=== PATIENT | female | born 1980 | race Caucasian/White ===

== ENCOUNTER → 2020-06-29 15:36 | Outpatient (CLI) | payer BC, SELFPAY ==
--- NOTE | ~2020-06-29 | MM_ITS ---
EXAMINATION: MM screening [facility] BI w elieser HISTORY: Screening mammogram TECHNIQUE: Craniocaudal and mediolateral oblique 3-D tomosynthesis images were obtained and synthetic 2-D images were generated. CAD analysis was submitted and interpreted. COMPARISON: 11/10/2018, 10/25/2016 BREAST PARENCHYMAL COMPOSITION: The breasts are extremely dense, which lowers the sensitivity of mamm ography. FINDINGS: There is no evidence of suspicious mass, calcification, or architectural distortion to sugg est malignancy in either breast. There has been no suspicious interval change. IMPRESSION: 1. No mammographic evidence of malignancy. 2. Recommend routine screening mammography in one year. BI-RADS Category 1: Negative Reviewed, dictated and finalized at location A. IN [facility]
== END ==
PROVIDERS: PCP Physician Assistant; Visit Provider Physician Assistant
DX: Z12.31 Encounter for screening mammogram for malignant neoplasm of breast (principal)
CPT/HCPCS: 77063; 77067

== ENCOUNTER → 2021-04-19 08:25 | Outpatient (CLI) | payer BC, SELFPAY ==
--- NOTE | ~2021-04-19 | MMUS_ITS ---
EXAMINATION: MM diagnostic [facility] BI w elieser, US breast BI complete HISTORY: Right breast lump TECHNIQUE: ML, MLO and craniocaudal 3-D tomosynthesis images of both breasts were performed and [facility] were [facility]. CAD analysis was submitted and interpreted. High resolution bilateral complete breast ultrasound was performed. COMPARISON: 06/29/2020 bilateral digital screening mammogram 11/10/2018 bilateral diagnostic digital mammogram and limited right breast ultrasound BREAST PARENCHYMAL COMPOSITION: The breasts are extremely dense, which lowers the sensitivity of mamm ography. FINDINGS: MAMMOGRAPHIC FINDINGS: An approximately 8 mm circumscribed mass is noted in the posterior mid to lower outer left breast (ML O Tomosynthesis image 6/35; craniocaudal Tomosynthesis image 10/38). There is extremely dense stroma bilaterally may obscure additional masses. Bilateral complete ultraso und examination was therefore performed. Occasional benign calcifications are noted. ULTRASOUND: No suspicious solid mass lesion or shadowing of either breast is detected. Right breast: 2:00 5 cm from nipple: 3 x 10 mm simple cyst 10:00 4 cm from nipple: There are 2 up to 22 x 16 mm simple cyst. Left breast: 12:00 2 cm from nipple: Adjacent 4 and 4.5 mm simple cysts 1:00 2 cm from nipple: 14 x 8 x 12 mm cyst 3:00 5 cm from nipple: 4.5 x 8.5 mm cyst 3:00 3 cm from nipple: 2.6 x 4.5 mm cyst 5:00 2 cm from nipple: Septated 7.5 x 4.1 x 6.7 mm cyst 10:00 4 cm from nipple: Septated 6.7 x 5.2 x 6.4 mm cyst 11:00 4 cm from nipple: 4.5 x 3.6 x 6.6 mm parallel circumscribed hypoechoic lesion IMPRESSION: 1. Benign findings; no mammographic evidence of malignancy 2. Routine mammographic screening is recommended BI-RADS Category 2: Benign finding(s). Reviewed, dictated and finalized at location A. IMPRESSION: 1. Benign findings; no mammographic evidence of malignancy 2. Routine mammographic screening is recommended BI-RADS Category 2: Benign finding(s).
== END ==
PROVIDERS: PCP Physician Assistant; Visit Provider Nurse Practitioner Obstetrics & Gynecology
DX: N63.13 Unspecified lump in the right breast, lower outer quadrant (principal)
CPT/HCPCS: 76641; 77062; 77066; G0279

== ENCOUNTER → 2022-04-27 15:46 | Outpatient (CLI) | payer BC, SELFPAY ==
--- NOTE | ~2022-04-27 | CT_ITS ---
EXAMINATION: CT facial bones wo con DATE: 04/27/2022 16:17 INDICATION: Left facial pain. TECHNIQUE: Computed tomography (CT) of the facial bones and maxillofacial region was performed withou t intravenous contrast. Automated exposure control and iterative reconstruction technique were employ ed. The dose-length product was 294.29 mGy-cm. COMPARISON: None. FINDINGS: There is mild mucosal thickening in the ethmoid sinuses and right maxillary sinus. Bone ali gnment is normal. No fracture. There is mild cervical spondylosis. IMPRESSION: 1. No etiology for the patient's symptoms. Reviewed, dictated and finalized at location A.
== END ==
PROVIDERS: PCP Physician Assistant; Visit Provider Physician Assistant
DX: G50.1 Atypical facial pain (principal)
CPT/HCPCS: 70486

== ENCOUNTER → 2022-05-15 16:00 | Outpatient (CLI) | payer BC, SELFPAY ==
--- NOTE | ~2022-05-15 | MM_ITS ---
EXAMINATION: MM screening [facility] BI w elieser HISTORY: Screening mammogram TECHNIQUE: Craniocaudal and mediolateral oblique 3-D tomosynthesis images were obtained and synthetic 2-D images were generated. CAD analysis was submitted and interpreted. COMPARISON: 04/19/2021, 06/29/2020, 11/10/2018 BREAST PARENCHYMAL COMPOSITION: The breasts are extremely dense, which lowers the sensitivity of mamm ography. FINDINGS: No suspicious mass, calcification, or architectural distortion are identified in either jose ast to suggest malignancy. There has been no suspicious interval change. IMPRESSION: 1. No mammographic evidence of malignancy. 2. Recommend routine screening mammography in one year. BI-RADS Category 1: Negative Reviewed, dictated and finalized at location A.
== END ==
PROVIDERS: PCP Physician Assistant; Visit Provider Nurse Practitioner Obstetrics & Gynecology
DX: Z12.31 Encounter for screening mammogram for malignant neoplasm of breast (principal)
CPT/HCPCS: 77063; 77067

== ENCOUNTER → 2023-05-20 12:56 | Outpatient (CLI) | payer BC, SELFPAY ==
--- NOTE | ~2023-05-20 | MM_ITS ---
EXAMINATION: MM screening [facility] BI w elieser HISTORY: Screening mammogram TECHNIQUE: Craniocaudal and mediolateral oblique 3-D tomosynthesis images were obtained and synthetic 2-D images were generated. CAD analysis was submitted and interpreted. COMPARISON: 05/2022 bilateral screening mammogram 04/19/2021 diagnostic bilateral mammogram and complete bilateral breast ultrasound examination BREAST PARENCHYMAL COMPOSITION: The breasts are extremely dense, which lowers the sensitivity of mamm ography. FINDINGS there are bilateral breast masses. There is extremely dense stroma which may obscure masses anywhere in either breast. Bilateral diagnostic mammography and complete bilateral breast ultrasound examination are recommended. IMPRESSION: 1. Bilateral breast masses and extremely dense breast stroma 2. Bilateral diagnostic mammography and bilateral breast ultrasound examination are recommended BI-RADS Category 0: Incomplete: Needs additional imaging evaluation. Reviewed, dictated and finalized at location A.
== END ==
PROVIDERS: PCP Nurse Practitioner Obstetrics & Gynecology; Visit Provider Nurse Practitioner Obstetrics & Gynecology
DX: Z12.31 Encounter for screening mammogram for malignant neoplasm of breast (principal); R92.8 Other abnormal and inconclusive findings on diagnostic imaging of breast
CPT/HCPCS: 77063; 77067

== ENCOUNTER → 2023-06-10 14:28 | Outpatient (CLI) | payer BC, SELFPAY ==
--- NOTE | ~2023-06-10 | MMUS_ITS ---
EXAMINATION: MM diagnostic [facility] BI w elieser, US breast LT limited HISTORY: Bilateral breast masses on screening mammogram TECHNIQUE: Additional 3-D tomosynthesis images of the breasts were performed and synthetic 2-D images were generated. CAD analysis was submitted and interpreted. High resolution limited left breast ultr asound was performed. COMPARISON: 05/20/2020, 05/15/2022, 04/19/2021, 06/29/2020 FINDINGS: MAMMOGRAPHIC FINDINGS: Right breast: A stable, obscured mass is present in the posterior third of the inner right breast, pr eviously characterized as a cyst. Left breast: There is a 2.1 cm round, obscured, equal density mass in the posterior third of the lowe r inner breast at the 8:00 location, 6 cm from the nipple. Asymmetries in the outer left breast are s table when compared to prior examinations. ULTRASOUND: There is a 2.3 cm cyst of the left breast at the 9:00 location, 2 cm from the nipple corresponding to the mammographic finding in question. Additional small cysts of the lower inner left breast measure up to 1 cm. IMPRESSION: 1. No mammographic or sonographic evidence of malignancy. 2. Recommend routine screening mammography in one year. BI-RADS Category 2: Benign finding(s). Reviewed, dictated and finalized at location A. IMPRESSION: 1. No mammographic or sonographic evidence of malignancy. 2. Recommend routine screening mammography in one year. BI-RADS Category 2: Benign finding(s).
== END ==
PROVIDERS: PCP Nurse Practitioner Obstetrics & Gynecology; Visit Provider Nurse Practitioner Obstetrics & Gynecology
DX: R92.8 Other abnormal and inconclusive findings on diagnostic imaging of breast (principal)
CPT/HCPCS: 76642; 77062; 77066; G0279

== ENCOUNTER 2024-05-27 16:00 | Outpatient (CLI) | payer BC, SELFPAY ==
--- NOTE | ~2024-05-27 | MM_ITS ---
EXAMINATION: MM screening [facility] BI w elieser HISTORY: Screening TECHNIQUE: Craniocaudal and mediolateral oblique 3-D tomosynthesis images were obtained and synthetic 2-D images were generated. CAD analysis was submitted and interpreted. COMPARISON: Comparison to multiple prior studies sequentially, with oldest reviewed study dated 08/2018. BREAST PARENCHYMAL COMPOSITION: Dense: The breasts are extremely dense, which lowers the sensitivity of mammography. FINDINGS: There are developing obscured masses in the left breast. The right breast is stable without evidence for malignancy. IMPRESSION: 1. Developing obscured left breast masses. 2. Additional mammographic views and possible breast ultrasound are recommended. BI-RADS Category 0: Incomplete: Needs additional imaging evaluation. Reviewed, dictated and finalized at location B. IMPRESSION: 1. Developing obscured left breast masses. 2. Additional mammographic views and possible breast ultrasound are recommended . BI-RADS Category 0: Incomplete: Needs additional imaging evaluation.
== END 2024-05-27 16:01 | disposition home or self-care (01) ==
LOC: MICIMG 16:00
PROVIDERS: PCP Obstetrics & Gynecology; Visit Provider Obstetrics & Gynecology
DX: Z12.31 Encounter for screening mammogram for malignant neoplasm of breast (principal); R92.8 Other abnormal and inconclusive findings on diagnostic imaging of breast
CPT/HCPCS: 77063; 77067

== ENCOUNTER 2024-06-23 09:48 | Outpatient (CLI) | payer BC, SELFPAY ==
--- NOTE | ~2024-06-23 | MMUS_ITS ---
EXAMINATION: MM diagnostic roberto LT w elieser, US breast LT limited HISTORY: Left breast masses TECHNIQUE: Additional 3-D tomosynthesis images of the left breast were performed and synthetic 2-D im ages were generated. CAD analysis was submitted and interpreted. High resolution limited left breast ultrasound was performed. COMPARISON: 06/10/2023, 05/20/2023, 05/15/2022 BREAST PARENCHYMAL COMPOSITION:Dense: The breasts are extremely dense, which lowers the sensitivity o f mammography. FINDINGS: MAMMOGRAPHIC FINDINGS: Spot compression views demonstrate persistent mass at the posterior left 9:00 position measuring 4.2 cm in diameter. There is additional mass at the upper, outer subareolar region measuring approximatel y 3.8 cm in diameter. ULTRASOUND: Ultrasound demonstrates multiple simple cysts in the left breast. There is a 3.7 x 1.3 x 2.6 cm anech oic simple cyst at the left 9:00 position, 3 cm from the nipple. There is a additional 2.0 cm simple cyst at the left breast 3:00 periareolar region. Multiple additional smaller simple cysts are seen in the region scanned. No solid or otherwise suspicious lesions seen. IMPRESSION: No evidence for malignancy. Multiple simple left breast cysts, as detailed above. BI-RADS Category 2: Benign finding(s). Reviewed, dictated and finalized at location . [facility] PHYSICIAN IMPRESSION: No evidence for malignancy. Multiple simple left breast cysts, as detailed abo ve. BI-RADS Category 2: Benign finding(s).
== END 2024-06-23 09:49 | disposition home or self-care (01) ==
LOC: MICIMG 09:49
PROVIDERS: PCP Obstetrics & Gynecology; Visit Provider Obstetrics & Gynecology
DX: N63.20 Unspecified lump in the left breast, unspecified quadrant (principal)
CPT/HCPCS: 76642; 77061; 77065; G0279

== ENCOUNTER 2025-05-31 11:32 | Outpatient (CLI) | payer BC, SELFPAY ==
--- NOTE | ~2025-05-31 | MM_ITS ---
EXAMINATION: screening [facility] BI w elieser INDICATION: Asymptomatic, referred for screening mammogram COMPARISON: 05/27/2024 through 06/29/2020 TECHNIQUE: Digital Breast Tomosynthesis CC, MLO views of Both breasts were obtained with computer-aided detection to assist in interpretation of the study. FINDINGS: The breasts are extremely dense, which lowers the sensitivity of mammography. There is a group of microcalcifications in the superior central left breast at posterior third. Elsewhere, there are no mammographic features of malignancy. Bilateral breast masses are known cysts IMPRESSION: 1. Left breast Incompletely characterized group of calcifications. 2. No evidence of malignancy in the Right breast. RECOMMENDATION: Left breast Diagnostic mammogram with true lateral, and appropriate magnification views. BI-RADS Category 0: Incomplete: Needs additional imaging evaluation. Reviewed, dictated and finalized at location B. IMPRESSION: 1. Left breast Incompletely characterized group of calcifications. 2. No evidence of malignancy in the Right breast. RECOMMENDATION: Left breast Diagnostic mammogram with true lateral, and appropriate magnificati on views. BI-RADS Category 0: Incomplete: Needs additional imaging evaluation.
== END 2025-05-31 11:33 | disposition home or self-care (01) ==
LOC: MICIMG 11:33
PROVIDERS: PCP Obstetrics & Gynecology; Visit Provider Obstetrics & Gynecology
DX: Z12.31 Encounter for screening mammogram for malignant neoplasm of breast (principal); R92.8 Other abnormal and inconclusive findings on diagnostic imaging of breast
CPT/HCPCS: 77063; 77067

== ENCOUNTER 2025-07-20 08:01 | Outpatient (CLI) | payer BC, SELFPAY ==
--- NOTE | ~2025-07-20 | MM_ITS ---
EXAMINATION: MM diagnostic [facility]to LT w elieser HISTORY: Additional imaging TECHNIQUE: Craniocaudal and mediolateral oblique 3-D tomosynthesis images were obtained and synthetic 2-D images were generated. CAD analysis was submitted and interpreted. COMPARISON: May 31 BREAST PARENCHYMAL COMPOSITION: Dense: The breasts are extremely dense FINDINGS: There are findings consistent with the known breast cysts. No suspicious masses are seen. A group of fine calcifications is confirmed in the posterior depth, relatively centrally. These lie minimally superior to the nipple line and minimally medial to the nipple line. These span a distance of 6 mm. No unexplained architectural distortion is seen. There are no skin or nipple abnormalities identified. There is no adenopathy seen on the images submitted. IMPRESSION: Suspicious calcifications for which stereotactic/tomographic guided core biopsy is recommended. BI-RADS 4 - Suspicious for malignancy. Tissue diagnosis is recommended. Reviewed, dictated and finalized at location C. ANESTHESIOLOGY
== END 2025-07-20 08:02 | disposition home or self-care (01) ==
LOC: MICIMG 08:01
PROVIDERS: PCP Obstetrics & Gynecology; Visit Provider Obstetrics & Gynecology
DX: N63.20 Unspecified lump in the left breast, unspecified quadrant (principal); R92.8 Other abnormal and inconclusive findings on diagnostic imaging of breast
CPT/HCPCS: 77061; 77065; G0279